=== PATIENT | female | born 1980 | race Caucasian/White ===

== ENCOUNTER 2020-07-05 12:26 | Emergency (ER) | payer MEDICAID ==
[~2020-07-05] VITALS: Ht 152.4 cm; Wt 61.8 kg
[~2020-07-05 12:26] MED LIST: ALBU6.7H9 INH; ALD25T PO; CARV-50 PO; DIPH25CA83 PO; FURO-150 PO; LISI40TA4 PO; NORCO10T PO; TOP100T PO
[2020-07-05 13:13] LABS: BASOPHILS % (AUTO) 0.5 % (0-1); EOSINOPHILS # (AUTO) 0.2 X10'3 (0-0.9); EOSINOPHILS % (AUTO) 3.6 % (0-6); HEMATOCRIT 41.7 % (35.0-45.0); HEMOGLOBIN 14.2 g/dl (12.0-16.0); LYMPHOCYTES % (AUTO) 33.1 % (21-51); MEAN CORPUSCULAR HEMOGLOBIN 32.6 PG (27.0-31.0); MEAN CORPUSCULAR VOLUME 95.9 FL (78-98); MEAN PLATELET VOLUME 8.1 FL (7.4-10.4); MONOCYTES # (AUTO) 0.6 X10'3 (0-0.9); MONOCYTES % (AUTO) 9.8 % (2-12); NEUTROPHILS # (AUTO) 3.3 X10'3 (1.8-7.7); PLATELET COUNT 205 X10'3 (140-440); RED BLOOD COUNT 4.35 X10'6 (4.20-5.60); RED CELL DISTRIBUTION WIDTH 12.2 % (11.5-14.5); WHITE BLOOD COUNT 6.2 X10'3 (4.5-11.0)
[2020-07-05 13:39] LABS: ALANINE AMINOTRANSFERASE 19 U/L (12-78); ALBUMIN 3.7 G/DL (3.4-5.0); ALBUMIN/GLOBULIN RATIO 1.1 (1.1-1.5); ALKALINE PHOSPHATASE 71 IU/L (46-116); ANION GAP 6 (8-16); ASPARTATE AMINO TRANSFERASE 21 U/L (10-37); BILIRUBIN,TOTAL 0.7 MG/DL (0.1-1.0); BLOOD UREA NITROGEN 11 MG/DL (7-18); BUN/CREATININE RATIO 12.8 (6.6-38.0); CALCIUM 8.9 MG/DL (8.5-10.1); CHLORIDE 100 MMOL/L (99-107); CREATININE 0.86 MG/DL (0.40-0.90); ETHANOL < 0.010 GM/DL (0.0-0.010); GLUCOSE 75 MG/DL (70-104); SODIUM 137 MMOL/L (135-145); TOTAL CARBON DIOXIDE 31.4 MMOL/L (24-32); TOTAL PROTEIN 7.1 G/DL (6.4-8.2); eGFR 74 ML/MIN
[2020-07-05 13:41] LABS: POTASSIUM 2.9 MMOL/L (3.5-5.1)
[2020-07-05] MEDS ORDERED: potassium Cl 20 mEq SR tablet PO STA (13:54)
[2020-07-05] MEDS ORDERED: NALO4SPR BOTHNARES (13:55)
[2020-07-05 14:56] VITALS: BP 107/62
== END 2020-07-05 15:06 | disposition home or self-care (01) ==
LOC: ER 12:26
DX: T40.1X1A Poisoning by heroin, accidental (unintentional), initial encounter (principal); E87.6 Hypokalemia; I50.9 Heart failure, unspecified; F32.9 Major depressive disorder, single episode, unspecified; Z72.89 Other problems related to lifestyle; Z98.890 Other specified postprocedural states; Z88.5 Allergy status to narcotic agent; Z79.2 Long term (current) use of antibiotics; Z88.8 Allergy status to other drugs, medicaments and biological substances; Z79.899 Other long term (current) drug therapy; Y92.89 Other specified places as the place of occurrence of the external cause
CPT/HCPCS: 36415; 80053; 80320; 84443; 85025; 93005; 99284

== ENCOUNTER 2023-09-09 06:30 | Inpatient (IN) | payer MEDICAID ==
[~2023-09-09] VITALS: Ht 154.9 cm; Wt 65.9 kg
[~2023-09-09 06:30] MED LIST changes: +ALBU6.7H14 INH; -ALBU6.7H9 INH; +LISI40TA13 PO; -LISI40TA4 PO; +NALO4SPR BOTHNARES
[2023-09-09] MEDS ORDERED: ipratropium/albuterol 3ml nebule NEB ONE (08:20)
[2023-09-09 08:45] LABS: BASOPHILS # (AUTO) 0.1 X10'3 (0-0.2); BASOPHILS % (AUTO) 0.3 % (0-1); EOSINOPHILS # (AUTO) 0.3 X10'3 (0-0.9); EOSINOPHILS % (AUTO) 1.6 % (0-6); HEMATOCRIT 42.5 % (35.0-45.0); HEMOGLOBIN 14.3 g/dl (12.0-16.0); LYMPHOCYTES # (AUTO) 1.4 X10'3 (1.1-4.8); LYMPHOCYTES % (AUTO) 7.8 % (21-51); MEAN CORPUSCULAR HGB CONC 33.7 g/dL (33.0-36.5); MEAN PLATELET VOLUME 7.7 FL (7.4-10.4); MONOCYTES # (AUTO) 0.9 X10'3 (0-0.9); MONOCYTES % (AUTO) 4.9 % (2-12); NEUTROPHILS # (AUTO) 15.1 X10'3 (1.8-7.7); NEUTROPHILS % (AUTO) 85.4 % (42-75); PLATELET COUNT 314 X10'3 (140-440); RED BLOOD COUNT 4.48 X10'6 (4.20-5.60); RED CELL DISTRIBUTION WIDTH 12.4 % (11.5-14.5); WHITE BLOOD COUNT 17.7 X10'3 (4.5-11.0)
[2023-09-09 08:58] LABS: ALANINE AMINOTRANSFERASE 54 U/L (12-78); ALBUMIN 2.9 G/DL (3.4-5.0); ALBUMIN/GLOBULIN RATIO 0.7 (1.1-1.5); ALKALINE PHOSPHATASE 154 IU/L (46-116); ANION GAP 6 (8-16); ASPARTATE AMINO TRANSFERASE 44 U/L (10-37); BILIRUBIN,TOTAL 0.6 MG/DL (0.1-1.0); BLOOD UREA NITROGEN 15 MG/DL (7-18); BUN/CREATININE RATIO 19.7 (10.0-20.0); CALCIUM 8.6 MG/DL (8.5-10.1); CHLORIDE 103 MMOL/L (99-107); CREATININE 0.76 MG/DL (0.40-0.90); GLUCOSE 99 MG/DL (70-104); POTASSIUM 4.3 MMOL/L (3.5-5.1); SODIUM 140 MMOL/L (135-145); TOTAL CARBON DIOXIDE 31.1 MMOL/L (24-32); TOTAL PROTEIN 7.3 G/DL (6.4-8.2); eCRCL 74 ML/MIN; eGFR 84 ML/MIN
[2023-09-09 09:02] VITALS: PULSE 104; PULSE 94; RESP 18; RESP 20; O2SAT 99
[2023-09-09 10:03] LABS: PRO BRAIN NATRIURETIC PEPTIDE 3596 PG/ML (0-125)
[2023-09-09] MEDS ORDERED: potassium Cl 20 mEq SR tablet PO PRN ×2 (11:00)
[2023-09-09] MEDS ORDERED: magnesium 4gm in 100ml NS 100 ML IV PRN (11:00)
[2023-09-09] MEDS ORDERED: magnesium 2GM in 50ml NS 50 ML IV PRN (11:00)
[2023-09-09] MEDS ORDERED: PERFLUTREN PROTEIN-A MICROSPHR (Optison) 0.22 MG/ML 3ML VIAL IV ONE (11:00)
[2023-09-09] MEDS ORDERED: ondansetron/PF 4mg/2ml inj IV PRN (11:00)
[2023-09-09] MEDS ORDERED: magnesium Cl slow-release 64mg tablet PO PRN (11:00)
[2023-09-09] MEDS ORDERED: acetaminophen 325mg tablet PO PRN (11:00)
[2023-09-09] MEDS ORDERED: potassium Cl 40MEQ/1/2NS 520ml 520 ML IV PRN (11:00)
[2023-09-09] MEDS: lisinopril 10 MG tablet PO SCH (12:06)
[2023-09-09] MEDS: HYDROmorphone inj. 0.5 MG/0.5 ML DISP.SYRIN IV PRN ×2 (14:06→20:10)
[2023-09-09] MEDS: docusate sod 100mg capsule PO SCH (19:51)
[2023-09-09] MEDS: K and/or MAG REPLACEMENT MC SCH (19:52)
[2023-09-09] MEDS: methylPREDNISolone sod succ/PF 40mg inj. IV SCH (20:08)
[2023-09-09] MEDS: furosemide 40mg/4ml inj IV SCH (20:08)
[2023-09-09] MEDS: heparin, porcine 5000 units/ml vial SQ SCH (20:09)
[2023-09-09] MEDS: carVEDilol 12.5mg tablet PO SCH (20:09)
[2023-09-10] MEDS: HYDROmorphone inj. 0.5 MG/0.5 ML DISP.SYRIN IV PRN ×2 (02:19→09:14)
[2023-09-10 03:53] LABS: ANION GAP 9 (8-16); BLOOD UREA NITROGEN 15 MG/DL (7-18); BUN/CREATININE RATIO 21.1 (10.0-20.0); CALCIUM 8.9 MG/DL (8.5-10.1); CHLORIDE 101 MMOL/L (99-107); CREATININE 0.71 MG/DL (0.40-0.90); GLUCOSE 148 MG/DL (70-104); POTASSIUM 4.1 MMOL/L (3.5-5.1); SODIUM 136 MMOL/L (135-145); TOTAL CARBON DIOXIDE 26.5 MMOL/L (24-32); eCRCL 79 ML/MIN; eGFR > 90 ML/MIN
[2023-09-10 04:00] LABS: BASOPHILS % (AUTO) 0.4 % (0-1); EOSINOPHILS % (AUTO) 0.1 % (0-6); HEMATOCRIT 43.6 % (35.0-45.0); HEMOGLOBIN 14.6 g/dl (12.0-16.0); LYMPHOCYTES # (AUTO) 0.9 X10'3 (1.1-4.8); LYMPHOCYTES % (AUTO) 7.6 % (21-51); MEAN CORPUSCULAR HEMOGLOBIN 31.8 PG (27.0-31.0); MEAN CORPUSCULAR HGB CONC 33.5 g/dL (33.0-36.5); MEAN CORPUSCULAR VOLUME 94.8 FL (78-98); MEAN PLATELET VOLUME 8.2 FL (7.4-10.4); MONOCYTES # (AUTO) 0.1 X10'3 (0-0.9); MONOCYTES % (AUTO) 0.9 % (2-12); NEUTROPHILS # (AUTO) 10.2 X10'3 (1.8-7.7); PLATELET COUNT 352 X10'3 (140-440); RED BLOOD COUNT 4.59 X10'6 (4.20-5.60); RED CELL DISTRIBUTION WIDTH 12.2 % (11.5-14.5); WHITE BLOOD COUNT 11.2 X10'3 (4.5-11.0)
[2023-09-10 08:00] VITALS: BP 112/74; PULSE 88; RESP 20; TEMP 98.1; O2SAT 95; O2SAT 97
[2023-09-10] MEDS: docusate sod 100mg capsule PO SCH (08:00)
[2023-09-10] MEDS: K and/or MAG REPLACEMENT MC SCH (08:00)
[2023-09-10] MEDS ORDERED: levoFLOXACIN-Levaquin 500mg/D5 100 ML IV SCH (08:00)
[2023-09-10] MEDS: carVEDilol 12.5mg tablet PO SCH (09:08)
[2023-09-10] MEDS: lisinopril 10 MG tablet PO SCH (09:08)
[2023-09-10] MEDS: furosemide 40mg/4ml inj IV SCH (09:09)
[2023-09-10] MEDS: heparin, porcine 5000 units/ml vial SQ SCH (09:09)
[2023-09-10] MEDS: methylPREDNISolone sod succ/PF 40mg inj. IV SCH (09:09)
[2023-09-10 11:00] VITALS: BP 97/63; PULSE 78; RESP 20; TEMP 98.7; O2SAT 98
== END 2023-09-10 14:40 | disposition left against medical advice (07) | DRG 140 ==
LOC: ER 06:30 → ED HOLD 11:02 → EDBEDREQ 09-10 05:14 → PCU 3S 09-10 08:49
PROVIDERS: ADMIT Internal Medicine; ATTEND Internal Medicine
DX: J44.1 Chronic obstructive pulmonary disease with (acute) exacerbation (principal); I42.9 Cardiomyopathy, unspecified; I50.9 Heart failure, unspecified; I11.0 Hypertensive heart disease with heart failure; F19.90 Other psychoactive substance use, unspecified, uncomplicated; Z20.822 Contact with and (suspected) exposure to COVID-19; F32.A Depression, unspecified; G89.29 Other chronic pain; K21.9 Gastro-esophageal reflux disease without esophagitis
CPT/HCPCS: 36415; 71045; 80048; 80053; 83605; 83735; 83880; 84484; 85025; 87040; 87081; 87502; 87503; 87811; 93005; 93306; 94640; 94760; 99285; G0378; J1170; J1644; J1940; J1956; J2920; J7040

== ENCOUNTER 2024-08-22 16:18 | Emergency (ER) | payer MEDICAID ==
[~2024-08-22] VITALS: Ht 152.4 cm; Wt 66.8 kg
[~2024-08-22 16:18] MED LIST changes: -DIPH25CA83 PO
[2024-08-22] MEDS: amoxicillin 250mg capsule PO STA (20:17)
[2024-08-22] MEDS: ketorolac trometh 30MG/ML vial 30 MG/ML VIAL IV STA (20:19)
[2024-08-22] MEDS ORDERED: AMOX875T10 PO (20:39)
[2024-08-22 20:57] VITALS: BP 147/78; PULSE 90; RESP 16; TEMP 97.8; O2SAT 99
== END 2024-08-22 20:58 | disposition home or self-care (01) ==
LOC: ER 16:19
DX: K04.7 Periapical abscess without sinus (principal); I11.0 Hypertensive heart disease with heart failure; I50.9 Heart failure, unspecified; K21.9 Gastro-esophageal reflux disease without esophagitis; J45.909 Unspecified asthma, uncomplicated; F32.A Depression, unspecified; Z88.5 Allergy status to narcotic agent; Z88.1 Allergy status to other antibiotic agents; Z88.8 Allergy status to other drugs, medicaments and biological substances; Z79.899 Other long term (current) drug therapy; Z98.890 Other specified postprocedural states; Z72.89 Other problems related to lifestyle
CPT/HCPCS: 96374; 99283; J1885